=== PATIENT | female | born 1965 | race Caucasian/White ===

== ENCOUNTER → 2024-03-10 | Outpatient (CLI) | payer BC ==
[~2024-03-10] MED LIST: Albuterol 0.083% Neb Soln 2.5 MG/3 ML UD IH ONE
== END ==
LOC: COL.RAD 10:43
DX: R06.02 Shortness of breath (principal)

== ENCOUNTER → 2024-04-25 | Outpatient (CLI) | payer BC ==
[~2024-04-25] MED LIST changes: +Methacholine Vial A (Clear Label Base-Cntrl) IH ONE; +Methacholine Vial B (Red Label) 0.0625 MG/ML 3 ML VIAL.NEB IH ONE; +Methacholine Vial C (Orange Label) 0.25 MG/ML 3 ML VIAL.NEB IH ONE; +Methacholine Vial D (Yellow Label) 1 MG/ML 3 ML VIAL.NEB IH ONE
== END ==
LOC: COL.CARD 12:06
DX: R06.02 Shortness of breath (principal)
CPT/HCPCS: J7674